=== PATIENT | female | born 1975 | race Caucasian/White ===

== ENCOUNTER 2020-11-03 04:28 | Day surgery (SDC) | payer OTHER ==
[2020-10-31 09:37] VITALS: BMI 30.4
[2020-11-03] MEDS ORDERED: ACETAMINOPHEN 325 MG TABLET (FP) PO PRN (10:03)
[2020-11-03] MEDS ORDERED: IBUPROFEN 400 MG TABLET (FP) PO PRN (10:03)
[2020-11-03] MEDS ORDERED: ONDANSETRON 4 MG/2 ML VIAL IVPUSH PRN (10:04)
[2020-11-03] MEDS ORDERED: PROPOFOL 20 ML ONE ×2 (10:28)
[2020-11-03] MEDS ORDERED: MIDAZOLAM HCL 2 MG/2 ML SINGLE DOSE VIAL ONE (10:28)
[2020-11-03] MEDS ORDERED: DEXAMETHASONE SOD PHOSPHATE 4 MG/1 ML VIAL ONE (10:49)
[2020-11-03] MEDS ORDERED: KETOROLAC TROMETHAMINE 30 MG/1 ML VIAL ONE (10:55)
[2020-11-03] MEDS ORDERED: oxyCODONE HCL 5 MG TABLET PO PRN (11:36)
[2020-11-03] MEDS ORDERED: LACTATED RINGERS SOLUTION 1,000 ML IV SCH (11:45)
[2020-11-03] MEDS ORDERED: oxyCODONE HCL 5 MG TABLET PO ONE (14:00)
[2020-11-03] MEDS ORDERED: oxyCODONE HCL 5 MG TABLET ONE (14:02)
[2020-11-03 15:01] VITALS: BP 123/70; PULSE 74; TEMP 98.6
== END 2020-11-03 14:50 | disposition home or self-care (01) ==
LOC: JASU-SURG 04:28
PROVIDERS: ATTEND Obstetrics & Gynecology
PROC: 0UDB7ZX Extraction of Endometrium, Via Natural or Artificial Opening, Diagnostic (ICD-10-PCS; 2020-11-03)
PROC: 0UJD8ZZ Inspection of Uterus and Cervix, Via Natural or Artificial Opening Endoscopic (ICD-10-PCS; 2020-11-03)
PROC: 0UB98ZZ Excision of Uterus, Via Natural or Artificial Opening Endoscopic (ICD-10-PCS; principal; 2020-11-03 11:06)
PROC: 0UB97ZX Excision of Uterus, Via Natural or Artificial Opening, Diagnostic (ICD-10-PCS; 2020-11-03 11:06)
DX: D25.0 Submucous leiomyoma of uterus (principal); N84.0 Polyp of corpus uteri
CPT/HCPCS: 36415; 84703; 86850; 86900; 86901; 88305-TC; 94760